=== PATIENT | male | born 1940 | race Caucasian/White ===

== ENCOUNTER 2018-05-02 13:00 | Observation (INO) ==
--- NOTE | 2018-05-02 14:05 | Emergency Department Note ---
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 Also return if he develop intractable nausea, vomiting, headache, blurred vision , numbness/weakness of any of your limbs, or any other signs that concern you. Make a follow-up appointment with neurology to be seen outpatient. Take the meclizine and Zofran as prescribed for dizziness and nausea. Prescriptions: Ondansetron HCl [Zofran] 4 mg PO Q8HR PRN #20 tab PRN Reason: Nausea And Vomiting Meclizine [Antivert] 12.5 mg PO TID 10 Days #30 tablet Referrals: Bentley Kumar DO [Primary Care Provider] - Meron Fishman MD [Partnered Physician] - Time of Disposition: 16:05 General Adult HPI - General Chief complaint: ED Dizziness Stated complaint: Dizzy Time Seen by Provider: 05/02/18 13:03 Source: patient Mode of arrival: ambulatory Limitations: no limitations Nursing Notes Reviewed: Yes Vital Signs Reviewed: Yes - History of Present Illness HPI Narrative: 78 yo male presents to the emergency department with the complaint of dizziness that started yesterday morning. He states that he rolled over in bed yesterday morning and immediately became so dizzy. He describes this dizziness as the room spinning and it is worse when he moves his head. It is especially bad when he has to lift his head up. He became extremely nauseous with this yesterday and felt weak and sweaty but got less dizzy as the day went on. This morning he woke up and rolled over in bed and again had the intense dizziness and states he was unable to get out of bed for several hours due to this dizziness. He has never had anything like this before and states she would only get momentary lightheadedness if he was bent over and stood up too suddenly in the past. He does not complain of any headache, chest pain, shortness of breath, abdominal pain at this time. He is not currently nauseous or sweaty but does feel generally weak at this time. Pain Scale: 0 - Related Data Previous Rx's Medication Instructions Recorded Meclizine [Antivert] 12.5 mg PO TID 10 Days #30 tablet 05/02/18 Ondansetron HCl [Zofran] 4 mg PO Q8HR PRN #20 tab 05/02/18 Allergies Allergy/AdvReac Type Severity Reaction Status Date / Time No Known Allergies Allergy Verified 05/02/18 13:39 All systems ED: reviewed and negative except as stated. Review of Systems: As Per HPI Constitutional: Reports: weakness. Denies: fever, chills, weight change Cardiovascular: Denies: chest pain, palpitations, dyspnea on exertion, edema, syncope Respiratory: Denies: cough, dyspnea, wheezes, hemoptysis, stridor Gastrointestinal: Reports: nausea. Denies: abdominal pain, vomiting Genitourinary: Denies: urgency, dysuria Musculoskeletal: Denies: back pain, neck pain Integumentary: Denies: rash, abrasion Neurological: Reports: weakness, paresthesias (Bilateral pedal neuropathy). Denies: headache, numbness Past Medical History - Past Medical History Attestation: Yes The following information was validated with the patient. Source: patient Medical history: Reports: diabetes Psychiatric history: Reports: no psych history - Social History Smoking Status: Never smoker Smokeless Tobacco Status: No Alcohol use: Reports: none Drug use: Reports: none Physical Exam Patient lying comfortably in bed. No ataxia on finger-nose or heel putnam testing. 5 out of 5 motor strength in extremities. No sensory changes per patient. Horizontal nystagmus was observed during eye movement testing. Bilateral ears normal to exam. - General Limitations: no limitations General appearance: alert, in no apparent distress - Head Head exam: atraumatic, normocephalic - Eye Eye exam: Present: normal appearance, PERRL, EOMI, nystagmus (Horizontal) - ENT ENT exam: TM's normal bilaterally, normal external ear exam - Neck Neck exam: Present: normal inspection, full ROM, trachea midline - Chest Chest inspection: Present: normal inspection, symmetric chest wall rise. Absent : tenderness - Respiratory Respiratory exam: Present: normal lung sounds bilaterally. Absent: respiratory distress - Cardiovascular Cardiovascular exam: Present: regular rate, normal rhythm, normal heart sounds - Abdominal Exam Abdominal exam: Present: soft, Non-Tender. Absent: distention, guarding, rebound, rigidity - Extremities Exam Extremities exam: Present: normal inspection, full ROM. Absent: tenderness, pedal edema, joint swelling - Neurological Exam Neurological exam: Present: alert, oriented X3. Absent: motor sensory deficit - Psychiatric Psychiatric exam: Present: normal affect, normal mood - Skin Skin exam: Present: warm, dry, intact Course Vital Signs Temperature 98 F 05/02/18 13:10 Pulse Rate 65 05/02/18 13:10 Respiratory Rate 20 05/02/18 13:10 Blood Pressure 150/92 05/02/18 13:10 O2 Sat by Pulse Oximetry 98 05/02/18 13:10 Temperature 98 F 05/02/18 13:10 Pulse Rate 63 05/02/18 16:05 Respiratory Rate 20 05/02/18 16:05 Blood Pressure 144/87 05/02/18 16:05 O2 Sat by Pulse Oximetry 94 05/02/18 16:05 Oxygen Delivery Oxygen Delivery Room Air Medical Decision Making - [facility] Narrative Medical decision making narrative: From patient history and physical, this dizziness likely is peripheral in origin. We will evaluate other causes of dizziness such as cardiac or central or metabolic. EKG, CT head noncontrast, CBC, BMP, urinalysis, troponin will be ordered to evaluate for other causes. We will give him meclizine for his dizziness to see if this helps. 1515 - patient's lab work has returned unremarkable. His EKG showed a new first -degree AV jaspreet block with some T-wave flattening, but no signs of any acute ischemic changes. Troponin was negative. 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 We have consulted neurology to ask if they have any further input on this patient. 1534 - spoke with Dr. Fishman from neurology. The patient very of vertigo developing yesterday was explained to him as well as the new lacunar infarct seen on CT scan. He states that the vertigo was sounds peripheral to him and that these lacunar infarcts would not cause his symptoms. He suggests giving the patient 60 mg Solu-Medrol in the emergency department as well as meclizine and if he is able to ambulate he can be seen outpatient. He also suggests the patient start taking a daily baby aspirin for prevention of further infarcts. 1546 - spoke with patient who states that he is feeling better. We will discharge him home after he receives his Solu-Medrol. He states that he used to take aspirin but he developed some GI bleeding from it and it really upset his stomach and he will not take it because of the side effects now. - Medical Records Medical records reviewed: Yes I reviewed the patient's medical records. - Lab Data Lab results reviewed: Yes I reviewed the patient's lab results. Result diagrams: 05/02/18 13:34 05/02/18 13:34 Lab Results 05/02/18 05/02/18 05/02/18 Range/Units 13:34 13:34 14:00 WBC 6.0 (4.3-11.1) K/mcL RBC 4.76 (4.19-5.50) M/mcL Hgb 14.6 (12.9-16.9) g/dL Hct 43.6 (37.5-50.1) % MCV 91.6 (83.0-100.0) fL MCH 30.7 (28.0-33.3) pg MCHC 33.5 (31.6-35.5) g/dL RDW 12.6 (11.5-14.5) % Plt Count 213 (140-400) K/mcL MPV 10.9 (9.4-12.4) fL Sodium 135 L (136-145) mEq/L Potassium 3.6 (3.5-5.1) mEq/L Chloride 109 H (98-107) mEq/L Carbon Dioxide 27 (23-29) mEq/L BUN 14 (8-23) mg/dL Creatinine 0.83 (0.70-1.30) mg/dL Est GFR ( Amer) > 60 (> 60) Est GFR (Non-Af Amer) > 60 (> 60) BUN/Creatinine Ratio 17 (6-26) Glucose 146 H (70-105) mg/dL Calculated Osmolality 283 (280-300) Calcium 9.7 (8.6-10.3) mg/dL Troponin I < 0.03 (< 0.04) ng/mL Urine Color Yellow (Yellow) Urine Clarity Clear (Clear) Urine pH 8.0 (5.0-8.0) pH Units Ur Specific [place] 1.018 (1.010-1.025) Urine Protein Trace (Neg-Trace) mg/dL Urine Glucose (UA) Normal (Normal) mg/dL Urine Ketones Trace H (Negative) mg/dL Urine Blood Negative (Negative) Urine Nitrite Negative (Negative) Urine Bilirubin Negative (Negative) Urine Urobilinogen Normal (Normal) mg/dL Ur Leukocyte Esterase Negative (Negative) Urine Microscopic RBC 0-3 (0-3) per hpf Urine Microscopic WBC 0-3 (0-3) per hpf Ur Squamous Epith Cells Few (None-Few) per lpf Urine Bacteria None Seen (None-Few) per hpf Hyaline Casts None Seen (None-Few) per lpf - Radiology Data Radiology results reviewed: Yes I reviewed the patient's radiology results. - EKG Data EKG #1 EKG attestation: Yes I reviewed and interpreted this EKG. EKG results narrative: 1338 - ventricular rate 65 bpm, GA interval 220 MS, QRS duration 97 MS, QT/QTC ratio 379/390 MS, normal axis. Sinus rhythm with first-degree AV block and nonspecific T-wave abnormalities that do not look to be ischemic in origin. His EKG has shown the development of first-degree block and some minor T wave flattening since his previous EKG dated 11/06/2012. Attestation Statement - Attestation Attestation: Patient was seen with resident physician. I reviewed the history, physical, assessment and plan, and agree with the findings. I also personally evaluated this patient and had [id number] time with this patient. 78-year-old male presents emergency department dizziness since yesterday. Patient states that has gotten progressively worse over the knee past 48 hours. Movement of the head and sitting up abruptly causes symptoms to be worse. The spinning sensation is difficult time catching his balance. He is diabetic and has had a history of pulmonary nodules. He has had brain workup to look for masses which involve been negative. Says the dizziness is new. No shortness of breath no chest pain no abdominal pain. There is some nausea when the room is spinning has not thrown up. Review of systems as above remainder negative. Physical exam vital signs are stable. ENT TMs are normal with no redness no bulging no erythema no foreign body. He does wear hearing aids and these were removed prior to examination. Neck is supple nontender no nuchal rigidity no meningeal signs. Heart regular rhythm and rate. Lungs clear. Abdomen soft nontender. Extremities unremarkable. Neurologically symptoms are caused by the patient either sitting up or turning his head to the side has some nystagmus but otherwise is focally intact with no deficits. Skin no rashes. Psych normal. ED course we will do workup for dizziness including urinalysis and laboratory testing and CT scan of the head. EKG shows first-degree AV block but no acute ischemic changes. Chuck comes back okay anticipate treating for vertigo. Patient was feeling better throughout his stay and was able to ambulate. CT scan had revealed lacunar infarcts of indeterminate age. We discussed this finding with neurology in relationship to his symptoms. It was felt that it was unlikely to be new however he recommended the addition of steroids at and the meclizine and to ensure the patient can ambulate prior to disposition. He also want to see the patient as an outpatient. We did recommend that to the patient and ensure that he was hemodynamically stable for discharge prior to him leaving.. Agree with resident physician assessment and plan.
[2018-05-02 14:20] LABS: Hematocrit 43.6 % (37.5-50.1); Hemoglobin 14.6 g/dL (12.9-16.9); Mean Corpuscular HGB Conc 33.5 g/dL (31.6-35.5); Mean Corpuscular Hemoglobin 30.7 pg (28.0-33.3); Mean Corpuscular Volume 91.6 fL (83.0-100.0); Mean Platelet Volume 10.9 fL (9.4-12.4); Platelet Count 213 K/mcL (140-400); Red Blood Count 4.76 M/mcL (4.19-5.50); Red Cell Distribution Width 12.6 % (11.5-14.5)
[2018-05-02 14:25] LABS: Bilirubin,Urine Negative (Negative); Blood,Urine Negative (Negative); Clarity,Urine Clear (Clear); Color,Urine Yellow (Yellow); Glucose,Urine (UA) Normal (Normal); Ketones,Urine Trace mg/dL (Negative); Leukocyte Esterase,Urine Negative (Negative); Nitrite,Urine Negative (Negative); Protein,Urine Trace mg/dL (Neg-Trace); Specific Gravity,Urine 1.018 (1.010-1.025); Urobilinogen,Urine Normal (Normal)
[2018-05-02 14:29] LABS: Bacteria,Urine None Seen per hpf (None-Few); Hyaline Casts,Urine None Seen per lpf (None-Few); RBC,Urine 0-3 per hpf (0-3); Squamous Epithelial Cell,Urine Few per lpf (None-Few); WBC,Urine 0-3 per hpf (0-3)
[2018-05-02 14:33] LABS: BUN/Creatinine Ratio 17 (6-26); Blood Urea Nitrogen 14 mg/dL (8-23); Calcium 9.7 mg/dL (8.6-10.3); Carbon Dioxide 27 mEq/L (23-29); Chloride 109 mEq/L (98-107); Glucose 146 mg/dL (70-105); Osmolality,Calculated 283 (280-300); Potassium 3.6 mEq/L (3.5-5.1); Sodium 135 mEq/L (136-145); eGFR For Non-African Americans > 60 (> 60)
[2018-05-02 15:02] LABS: Troponin I < 0.03 ng/mL (< 0.04)
[2018-05-02] MEDS ORDERED: MethylPREDNISolone 40 MG/ML VIAL IVP ONE (15:33)
[2018-05-02] MEDS ORDERED: Naloxone 0.4 MG/ML INJ IVP PRN (17:37)
--- NOTE | 2018-05-02 17:38 | Internal Med History&Physical ---
<LyndonvilleYumiko Neha - Last Filed: 05/02/18 22:06> Date of Encounter: 05/02/18 Time of Encounter: 17:37 Internal Medicine - H&P: HPI Chief complaint: Vertigo Admitted From: Home Plans for Post Hospital Care: Home History of present illness: Mr. Pastor is a 78 year old male with history of DM, polymyalgia rhematica. Patient indicated that he woke up yesterday morning and when he rolled over he was very dizzy. He indicated the vertigo comes with any movement, especially his head.The patient was not able to be discharged home from the ED due to the dizziness, and his inability to ambulate. CT of head showed no acute changes, mild atrophy and mild old microvasular ischemic change in both cerebral hemispheres. 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 Patient with no focal deficits. The patient will need MRI per the CT suggestion. Will get orthostatics, as the patient indicated he was + for orthostatic hypotension in the squad. Neurology was consulted in the ED. The patient was given solumedrol in the ED. The patient is a non-insulin dependent diabetic. Blood sugar is 146 at this time. Will hold all oral anti- hypoglycemic meds for now and start the patient on low dose insulin. EKG showed sinus rhythm first degree AVB, rate 65. Past Med Surg Social Fam HX - Past Medical History Medical history: diabetes Additional medical history: benign lung nodules Psychiatric history: no psych history - Past Surgical History Additional surgical history: eyelid surgery. back - Social History Smoking Status: Never smoker Smokeless Tobacco Status: No Alcohol use: none Drug use: none - Family History Mother Living Status: Age at : 62 Cause of : Colon Cancer Hx Family Cardiac Disorders: No Hx Family Respiratory Disorders: Yes Hx Family Cancer: Yes (Lung Cancer, Colon Cancer,) Hx Family Genitourinary Disorders: No Hx Family Endocrine Disorder: Yes (Diabetes) Hx Family Musculoskeletal Disorders: No Hx Family Neuromuscular Disorders: No Hx Family Neurologic Disorders: No Hx Family HEENT Disorders: No Hx Family Autoimmune Disorders: No Hx Family Reproductive Disorders: No Hx Family Psychosocial Disorders: No Hx Family Medical Disorders: No Internal Medicine - H&P: Meds Alendronate Sodium [Fosamax] 70 mg PO QWEEK 05/02/18 [History] B12/Levomefolate Calcium/B-6 05/02/18 [History] Cholecalciferol (D-3) [Vitamin D] 2,000 unit PO DAILY 05/02/18 [History] Fish Oil 1,000 BID 05/02/18 [History] Fluticasone Propionate Nasal [Flonase] 2 spr NS DAILY 05/02/18 [History] Gabapentin [Neurontin] 600 mg PO TID 05/02/18 [History] Meclizine [Antivert] 12.5 mg PO TID 10 Days #30 tablet 05/02/18 [Rx] Metformin HCl [Glucophage] 1,000 mg PO BID 05/02/18 [History] Ondansetron HCl [Zofran] 4 mg PO Q8HR PRN #20 tab 05/02/18 [Rx] Pioglitazone HCl [Actos] 30 mg PO DAILY 05/02/18 [History] Ranitidine HCl [Acid Ship Captain] 150 mg PO BID 05/02/18 [History] diazePAM [Valium] 5 mg PO DAILY 05/02/18 [History] 3 Allergy/AdvReac Type Severity Reaction Status Date / Time No Known Allergies Allergy Verified 05/02/18 13:39 All Systems PM: A 10-system review of systems was performed and is negative for pertinent findings except as documented above in the HPI. - Constitutional Constitutional: no chills, no fever(s), no night sweats - EENT Eyes: no change in vision, no discharge, no pain, no photophobia Ears: no ear discharge, no ear pain, no tinnitus Nose, mouth and throat: no dysphagia, no nasal discharge, no neck pain, no sore throat - Cardiovascular Cardiovascular ROS IM: no chest pain, no diaphoresis, no dyspnea, no lightheadedness, no palpitations, no syncope - Respiratory Respiratory: no cough, no dyspnea, no wheezing, no excessive phlegm production - Gastrointestinal Gastrointestinal: no abdominal pain, no diarrhea, no hematemesis, no hematochezia, no melena, no nausea, no vomiting - Musculoskeletal Musculoskeletal ROS IM: neck pain (Back of neck and head pain), no numbness, no tingling - Integumentary Integumentary IM: no rash, no unusual bruising - Neurological Neurological ROS: abnormal gait, dizziness, other (Inability to stand and ambulate ), no confusion, no convulsions, no focal weakness, no numbness, no tingling, no tremor(s) - Hematologic/Lymphatic Hematologic/Lymphatic: no easy bruising - Constitutional Vitals: Temp Pulse Resp BP Pulse Ox 98 F 62 20 141/90 94 05/02/18 13:10 05/02/18 17:00 05/02/18 17:00 05/02/18 17:00 05/02/18 17:00 General appearance: Present: A&O X 3, answers questions appropriately - Head Head exam: Present: atraumatic, normocephalic - Eye Eye exam: Present: PERRL, conjuntiva pink, sclera anicteric Pupils: Present: PERRL - Neck Neck exam general surgery: Present: supple, trachea midline. Absent: lymphadenopathy - Respiratory Respiratory exam: Present: CTAB. Absent: accessory muscle use, rales, rhonchi, wheezes - Cardiovascular Cardiovascular exam: Present: RRR, +S1, +S2. Absent: diastolic murmur, gallop, rubs, systolic murmur - GI/Abdominal GI/Abdominal exam: Present: normal bowel sounds, soft, no peritoneal signs. Absent: distended, tenderness - Extremities Exam Extremities exam: Present: warm, radial pulses palpable and symmetrical. Absent : calf tenderness, cyanotic, pedal edema - Neurological Exam Neurological exam: Present: CN II-XII intact, oriented X3, no focal deficits. Absent: pronater drift, facial droop, speech deficit - Skin Skin exam: Present: dry, intact Internal Med - H&P Results - Labs CBC & Chem 7: 05/02/18 13:34 05/02/18 13:34 - Assessment and plan (1) Vertigo Current Visit: Yes Status: Acute Assessment and plan: Patient reports periods of dizziness that only lasted seconds, in the past. Neurology was consulted in the ED. Vertigo started yesterday and has not subsided. The patient notices it with movement only, or turning his head side to side. Likely related to BPPV Patient reported no new medications Ortho-statics Echo Carotid duplex PT/OT consulted Cardiac monitoring MRI in am (2) BPPV (benign paroxysmal positional vertigo) Current Visit: Yes Status: Suspected Assessment and plan: Ortho-statics daily PT/OT consulted Cardiac monitoring MRI in am Qualifiers: Laterality: unspecified laterality Qualified Code(s): H81.10 - Benign paroxysmal vertigo, unspecified ear (3) PMR (polymyalgia rheumatica) Current Visit: Yes Status: Chronic Assessment and plan: Managed outpatient (4) Lacunar infarction Current Visit: Yes Status: Chronic Assessment and plan: Patient with 2 (?old) lacunar infarcts. CT suggested a MRI of the brain. Carotid dupex MRI scheduled echo Neurology on case - Time Spent With Patient Total time spent is greater than 50% in coordination of care (as documented) at patient's floor/unit and/or counseling patient: 25 - 35 minutes <Dixie Murrieta - Last Filed: 05/02/18 23:14> Date of Encounter: 05/02/18 Internal Medicine - H&P: HPI History of present illness: Mr. Pastor is a 78 year old male All Systems PM: A 10-system review of systems was performed and is negative for pertinent findings except as documented above in the HPI. - Constitutional Vitals: Temp Pulse Resp BP Pulse Ox 97.9 F 72 18 155/84 93 05/02/18 18:12 05/02/18 18:12 05/02/18 18:12 05/02/18 18:12 05/02/18 20:54 Internal Med - H&P Results - Labs CBC & Chem 7: 05/02/18 22:04 05/02/18 13:34 Labs: Short CBC 05/02/18 Range/Units 22:04 WBC 9.1 D (4.3-11.1) K/mcL Hgb 14.4 (12.9-16.9) g/dL Hct 43.2 (37.5-50.1) % Plt Count 213 (140-400) K/mcL Neutrophils # 8.4 (1.6-8.9) K/mcL - Impressions ITS Impressions Brain MRI 05/02/18 18:06 IMPRESSION: 1. No acute intracranial abnormality. 2. Senescent parenchymal volume loss with mild chronic white matter microvascular ischemic changes. D/ / Yuriy Awad / Yuriy Awad Interpreting Provider: Yuriy Awad - Time Spent With Patient Total time spent is greater than 50% in coordination of care (as documented) at patient's floor/unit and/or counseling patient: Patient was seen and examined at bedside. He reports that he developed sudden onset of dizziness and sensation of room spinning around him when he woke up this morning. The sensation was associated with nausea but denies vomiting. Denies recent head trauma, has never felt like this before, denies loss of function of his extremities. He tried to eat to alleviate his symptoms but his symptoms remain unresolved so he decided to come to the ED. getting up too quickly and sitting up from a lying position exacerbates his symptoms. He denies tinnitus or recent upper respiratory tract infection. Vital signs reviewed. Physical exam was normal myself on neurological exam cranial nerves II-12 is intact, no nystagmus, rapid hand movements intact strength is 5 out of 5 in all extremities. [id number] intact. I agree with the plan formulated by the PA above except as below May start meclizine when necessary for dizziness Was started on aspirin Was counseled on importance of statins. Although he refused to take statins since he feels as though it is going to worsen his polymyalgia rheumatica.
[2018-05-02] MEDS ORDERED: diazePAM 5 MG TABLET PO PRN (17:43)
[2018-05-02] MEDS ORDERED: Dextrose Gel 15 GM/37.5 ML TUBE PO PRN ×2 (17:47)
[2018-05-02] MEDS ORDERED: *HR* Dextrose 50 % in Water (Syg) 50 ML SYRINGE IVP PRN (17:47)
[2018-05-02] MEDS ORDERED: D5% in Water 1,000 ML IVC PRN (17:47)
[2018-05-02] MEDS ORDERED: Acetaminophen 325 MG TABLET PO PRN (17:56)
[2018-05-02] MEDS ORDERED: Aspirin 325 MG TABLET PO ONE (21:00)
[2018-05-02] MEDS ORDERED: Famotidine 20 MG TABLET PO SCH (21:00)
[2018-05-02] MEDS: Gabapentin 300 MG CAPSULE PO SCH (21:02)
[2018-05-02 22:38] LABS: Basophils % 0.2 %; Hematocrit 43.2 % (37.5-50.1); Hemoglobin 14.4 g/dL (12.9-16.9); Immature Granulocytes % 0.7 % (0-4); Immature Platelets 6.6 % (1.1-6.1); Lymphocytes # 0.6 K/mcL (0.6-4.6); Lymphocytes % 6.5 %; Mean Corpuscular HGB Conc 33.3 g/dL (31.6-35.5); Mean Corpuscular Hemoglobin 31.1 pg (28.0-33.3); Mean Corpuscular Volume 93.3 fL (83.0-100.0); Mean Platelet Volume 11.1 fL (9.4-12.4); Monocytes # 0.1 K/mcL (0.0-1.3); Monocytes % 0.7 %; Neutrophils # 8.4 K/mcL (1.6-8.9); Platelet Count 213 K/mcL (140-400); Red Blood Count 4.63 M/mcL (4.19-5.50); Red Cell Distribution Width 12.6 % (11.5-14.5); Segmented Neutrophils % 91.9 %
[2018-05-03] MEDS ORDERED: Pantoprazole 40 MG VIAL IVP SCH (06:30)
[2018-05-03 06:52] LABS: BUN/Creatinine Ratio 24 (6-26); Blood Urea Nitrogen 21 mg/dL (8-23); Carbon Dioxide 24 mEq/L (23-29); Chloride 106 mEq/L (98-107); Chol/HDL Ratio 5.7 (0-4.9); Cholesterol 205 mg/dL (< 200); Glucose 221 mg/dL (70-105); HDL Cholesterol 36 mg/dL (40-59); LDL Cholesterol,Calculated 141 mg/dL (0-99); Osmolality,Calculated 292 (280-300); Potassium 4.3 mEq/L (3.5-5.1); Sodium 136 mEq/L (136-145); Triglycerides 141 mg/dL (< 150); eGFR For Non-African Americans > 60 (> 60)
[2018-05-03 06:55] LABS: Troponin I < 0.03 ng/mL (< 0.04)
[2018-05-03] MEDS: Gabapentin 300 MG CAPSULE PO SCH ×3 (07:54→20:52)
[2018-05-03] MEDS: Aspirin 81 MG TAB.CHEW PO SCH (07:54)
[2018-05-03] MEDS: Insulin LISPRO 300 UNITS/3 ML VIAL SQ SCH ×3 (07:55→16:31)
[2018-05-03] MEDS: Fluticasone Propionate Nasal 50 MCG/SPRAY BOTTLE NS SCH (09:29)
--- NOTE | 2018-05-03 13:39 | Internal Med Progress Note ---
Date of Encounter: 05/03/18 Time of Encounter: 10:45 - Assessment and plan (1) Vertigo Current Visit: Yes Status: Acute Assessment and plan: possibly BPPV vs vestibular labyrinthitis; CT head and MRI brain showed no acute bleed/infarct, showed chronic microvascular ischemic changes; continue Telemetry, PRN Meclizine, fall precautions; Carotid Doppler shows nonstenotic plaque on the right and 40-59% stenosis in left distal ICA; Echo shows preserved EF, mild LV diastolic dysfunction, ascending thoracic aortic root dilation at 4cm; may need outpatient CTA chest; F/up Neurology recommendations; PT/OT evaluation pending; (2) Diabetes mellitus Current Visit: Yes Status: Chronic Assessment and plan: blood sugars acceptable; continue Accucheck blood glucose monitoring with sliding scale insulin as needed; diabetic diet; Qualifiers: Diabetes mellitus type: type 2 Diabetes mellitus shorthand reporter insulin use: without shorthand reporter use Diabetes mellitus complication status: with unspecified complications Qualified Code(s): E11.8 - Type 2 diabetes mellitus with unspecified complications (3) PMR (polymyalgia rheumatica) Current Visit: Yes Status: Chronic Assessment and plan: patient states it is secondary to statin use; completing prolonged steroid taper ; - Time Spent With Patient Total time spent is greater than 50% in coordination of care (as documented) at patient's floor/unit and/or counseling patient: - Subjective Interval history: Continues to have vertigo and dizziness, exacerbated by sitting up in bed and ambulation; no nausea, vomiting, syncope, chest pain, shortness of breath; - Constitutional Vitals: Temp Pulse Resp BP Pulse Ox 98.2 F 62 16 127/70 93 05/03/18 11:11 05/03/18 11:11 05/03/18 11:11 05/03/18 11:11 05/03/18 11:11 General appearance: Present: A&O X 3, answers questions appropriately - Respiratory Respiratory exam: Present: CTAB. Absent: accessory muscle use, rales, rhonchi, wheezes - Cardiovascular Cardiovascular exam: Present: RRR, +S1, +S2. Absent: diastolic murmur, gallop, rubs, systolic murmur - GI/Abdominal GI/Abdominal exam: Present: normal bowel sounds, soft, no peritoneal signs. Absent: distended, tenderness Internal Medicine: Result - Labs CBC & Chem 7: 05/02/18 22:04 05/03/18 05:59 Labs: Short CBC 05/02/18 Range/Units 22:04 WBC 9.1 D (4.3-11.1) K/mcL Hgb 14.4 (12.9-16.9) g/dL Hct 43.2 (37.5-50.1) % Plt Count 213 (140-400) K/mcL Neutrophils # 8.4 (1.6-8.9) K/mcL BMP 05/03/18 05:59 Sodium 136 Potassium 4.3 Chloride 106 Carbon Dioxide 24 BUN 21 Creatinine 0.89 Glucose 221 H Calcium 9.0 Cardiac Enzymes 05/03/18 Range/Units 05:59 Troponin I < 0.03 (< 0.04) ng/mL - Impressions Impressions Brain MRI 05/02/18 18:06 IMPRESSION: 1. No acute intracranial abnormality. 2. Senescent parenchymal volume loss with mild chronic white matter microvascular ischemic changes. D/ / Yuriy Awad / Yuriy Awad Interpreting Provider: Yuriy Awad Echocardiogram 05/03/18 10:00 Impressions: Not all Echo windows are well visualized. LVEF appears normal, 60-65%. Mild left ventricular diastolic dysfunction. RV is dilated with normal function. No significant valvular dysfunction. Lack of significant TR gradient to estimate RVSP. Mild elevation of RA pressures. The aortic root and ascending proximal thoracic aorta may be dilated, measured at 4.0cm. Consider dedicated CT imaging. Left Ventricular Wall Motion: Rest Echo Findings The basal inferior lateral wall was not visualized. All other wall segments showed normal motion. Findings: Study Quality * Technically challenging due to body habitus. ECG Findings * Normal sinus rhythm. Left Ventricle * LVEF 60-65%. * Normal LV chamber size and wall thickness. * Mild left ventricular diastolic dysfunction. Right Ventricle * RV is dilated with normal function. Left Atrium * Left atrium is not well visualized. Right Atrium * Mildly dilated right atrium. Aortic Valve * No aortic regurgitation. * Aortic valve not well visualized. * No aortic stenosis. Mitral Valve * No mitral regurgitation. * Normal mitral valve structure. * No mitral stenosis. Tricuspid Valve * Tricuspid valve not well visualized. * No tricuspid regurgitation. * Estimated RA pressure is 8 mmHg. Pulmonic Valve * Pulmonic valve is not well visualized. * No pulmonic stenosis. * No pulmonic regurgitation. Pulmonary Artery * Pulmonary artery not well visualized. Pericardium * There is no pericardial effusion present. Aorta * Dilated aortic root measuring 4.0cm. Interatrial Septum * No evidence of PFO by color Doppler. IVC * The IVC is not dilated. * < 50% respiratory change. Consult Discharge Plan - Plan
[2018-05-04] MEDS: Insulin LISPRO 300 UNITS/3 ML VIAL SQ SCH ×3 (08:37→17:00)
[2018-05-04] MEDS: Aspirin 81 MG TAB.CHEW PO SCH (09:08)
[2018-05-04] MEDS: Gabapentin 300 MG CAPSULE PO SCH ×2 (09:09→14:09)
[2018-05-04] MEDS: Fluticasone Propionate Nasal 50 MCG/SPRAY BOTTLE NS SCH (09:15)
--- NOTE | 2018-05-04 10:02 | Neurology - Consult Note ---
<Mauricio Mike Chapo - Last Filed: 05/04/18 09:47> Date of Encounter: 05/04/18 Time of Encounter: 09:30 History of Present Illness Chief complaint: Dizziness HPI: Mr. Pastor is a 78 year old male with PMH significant for DM and PMR who neurology is consulting for dizziness. When he awoke 3 days ago he says the room was spinning and and he laid in bed for about an hour and when he tried to get up he was diaphoretic and nauseous. He had his check both his BP and glucose and he says they were both normal for him. The room spinning sensation would last for a few seconds to about 1 min whenever he went from laying to sitting or sitting to standing and sometimes when turning his head to the sides. The next morning he says his symptoms were more intense and felt more off balance when ambulating with additional feelings of getting close to passing out. He then called EMS and was told he had orthostatic hypotension and transported to [place] ED. Yesterday, he says his symptoms improved some and was able to walk to the bathroom alone and his symptoms improved even more today. He says he ambulated with PT in the halls and did not feel dizzy but did sometimes feel off balance when turning. He denies ever having these symptoms before and denies any change in hearing, tinnitus, feelings of ear fullness, neck pain, chest pain, SOB, palpitations, presyncope/syncope, falls, or recent infections. Head CT, brain MRI, and carotid doppler's have not shown any acute findings. Past Med Surg Social Fam HX - Past Medical History Medical history: diabetes Additional medical history: benign lung nodules Psychiatric history: no psych history - Past Surgical History Additional surgical history: eyelid surgery. back - Social History Smoking Status: Never smoker Smokeless Tobacco Status: No Alcohol use: none Drug use: none - Family History Mother Living Status: Age at : 62 Cause of : Colon Cancer Hx Family Cardiac Disorders: No Hx Family Respiratory Disorders: Yes Hx Family Cancer: Yes (Lung Cancer, Colon Cancer,) Hx Family Genitourinary Disorders: No Hx Family Endocrine Disorder: Yes (Diabetes) Hx Family Musculoskeletal Disorders: No Hx Family Neuromuscular Disorders: No Hx Family Neurologic Disorders: No Hx Family HEENT Disorders: No Hx Family Autoimmune Disorders: No Hx Family Reproductive Disorders: No Hx Family Psychosocial Disorders: No Hx Family Medical Disorders: No Medications and Allergies Alendronate Sodium [Fosamax] 70 mg PO QWEEK 05/02/18 [History] B12/Levomefolate Calcium/B-6 05/02/18 [History] Cholecalciferol (D-3) [Vitamin D] 2,000 unit PO DAILY 05/02/18 [History] Fish Oil 1,000 BID 05/02/18 [History] Fluticasone Propionate Nasal [Flonase] 2 spr NS DAILY 05/02/18 [History] Gabapentin [Neurontin] 600 mg PO TID 05/02/18 [History] Meclizine [Antivert] 12.5 mg PO TID 10 Days #30 tablet 05/02/18 [Rx] Metformin HCl [Glucophage] 1,000 mg PO BID 05/02/18 [History] Ondansetron HCl [Zofran] 4 mg PO Q8HR PRN #20 tab 05/02/18 [Rx] Pioglitazone HCl [Actos] 30 mg PO DAILY 05/02/18 [History] Ranitidine HCl [Acid Reprint Sorter] 150 mg PO BID 05/02/18 [History] diazePAM [Valium] 5 mg PO DAILY 05/02/18 [History] 3 Allergy/AdvReac Type Severity Reaction Status Date / Time No Known Allergies Allergy Verified 05/02/18 13:39 All Systems: The remainder of the systems were reviewed and are negative - Nose, Mouth, Throat Nose, mouth and throat: as per HPI - Cardiovascular Cardiovascular ROS IM: as per HPI - Neurological Neurological ROS: as per HPI Physical Examination - Vital Signs Vital Signs: Initial Vital Signs Temp Pulse Resp BP Pulse Ox 98 F 65 20 150/92 98 05/02/18 13:10 05/02/18 13:10 05/02/18 13:10 05/02/18 13:10 05/02/18 13:10 - Constitutional General appearance: comfortable - Neurologic Motor examination - right side: 5/5: deltoids, biceps, triceps, wrist flexion, wrist extension, cement m[address], hip flexors, tibialis Anterior, quadriceps, toe extension (EHL), plantarflexion Motor examination - left side: 5/5: deltoids, biceps, triceps, wrist flexion, wrist extension, hip flexors, cement m[address], quadriceps, tibialis Anterior, toe extension (EHL), plantarflexion Detailed sensory examination: intact Mental Status Examination: awake, alert, oriented to person, oriented to place, oriented to time, follows commands appropriately, answers questions appropriately, no aphasia Cranial nerve examination: PERRL, EOMI, visual quick intact, sensory to face intact, no facial asymmetry is present, no dysarthria, flexes SCM and trapezius muscles symmetrically with full power, tongue protrudes midline, no atrophy or facial fasiculations present, veritgo (Ellicted with Crosby-Hallpike to the L side and nystagmus, opposite side normal ) Cerebellar examination: performs finger to nose and heel to [place]nam symmetrically without ataxia, no difficulty with rapid alternating movements Results - Laboratory Findings CBC and BMP: 05/02/18 22:04 05/03/18 05:59 Abnormal lab findings: Abnormal lab results Immature Plt Fraction 6.6 % (1.1-6.1) H 05/02/18 22:04 Glucose 221 mg/dL (70-105) H 05/03/18 05:59 POC Glucose 179 mg/dL (70-99) H 05/03/18 11:14 Cholesterol 205 mg/dL (< 200) H 05/03/18 05:59 LDL Cholesterol, Calc 141 mg/dL (0-99) H 05/03/18 05:59 HDL Cholesterol 36 mg/dL (40-59) L 05/03/18 05:59 Cholesterol/HDL Ratio 5.7 (0-4.9) H 05/03/18 05:59 Urine Ketones Trace mg/dL (Negative) H 05/02/18 14:00 Consult Discharge Plan - Plan Referrals: Bentley Kumar DO [Primary Care Provider] - <Meron Fishman I - Last Filed: 05/04/18 11:37> Date of Encounter: 05/04/18 Assessment and Plan (1) Vertigo Current Visit: Yes Status: Acute (2) Dizziness and giddiness Current Visit: Yes Status: Acute Pt was seen and examined, my medical decision was reviewed with the Resident Physician, I agree with the documented findings, disposition and treatment plas as described except to the extent set forth below This is a 78 years old male who was was admitted with this dizziness lightheadedness and vertiginous feeling without any focal findings on his current neurological examination. Patient did not have any focal motor weakness and his cranial nerve examination all within normal limits. Reviewed his MRI of the brain that is also negative for any acute infarct. He did have a mild the asymptomatic left carotid stenosis with 59% range suggest medical treatment with antiplatelet therapy along with the statin. Suspect patient dizziness is likely peripheral in nature no evidence of acute stroke on MRI of the brain and on clinical examination. Suggested to increase fluid may use meclizine on as-needed basis if he remains symptomatic perhaps he may benefit from vestibular rehabilitation. This patient is a stable okay to discharge from neurology standpoint. Meron Fishman MD History of Present Illness HPI: Mr. Pastor is a 78 year old male All Systems: The remainder of the systems were reviewed and are negative Physical Examination - Vital Signs Vital Signs: Initial Vital Signs Temp Pulse Resp BP Pulse Ox 98 F 65 20 150/92 98 05/02/18 13:10 05/02/18 13:10 05/02/18 13:10 05/02/18 13:10 05/02/18 13:10 Results - Laboratory Findings CBC and BMP: 05/02/18 22:04 05/03/18 05:59 Abnormal lab findings: Abnormal lab results Immature Plt Fraction 6.6 % (1.1-6.1) H 05/02/18 22:04 Glucose 221 mg/dL (70-105) H 05/03/18 05:59 POC Glucose 179 mg/dL (70-99) H 05/03/18 11:14 Cholesterol 205 mg/dL (< 200) H 05/03/18 05:59 LDL Cholesterol, Calc 141 mg/dL (0-99) H 05/03/18 05:59 HDL Cholesterol 36 mg/dL (40-59) L 05/03/18 05:59 Cholesterol/HDL Ratio 5.7 (0-4.9) H 05/03/18 05:59 Urine Ketones Trace mg/dL (Negative) H 05/02/18 14:00
--- NOTE | 2018-05-04 10:18 | Internal Med Progress Note ---
Date of Encounter: 05/04/18 Time of Encounter: 10:15 - Assessment and plan (1) Vertigo Current Visit: Yes Status: Acute Assessment and plan: Has improved since yesterday. increased ability to walk with aid Neuro consulted appreciate recs continue meclizine (2) PMR (polymyalgia rheumatica) Current Visit: Yes Status: Chronic Assessment and plan: improved finished steriod taper on 04/22/18 states it was from a statin medication. (3) Diabetes mellitus Current Visit: Yes Status: Chronic Assessment and plan: BG acceptable continue accuchecks and sliding scale insulin Qualifiers: Diabetes mellitus type: type 2 Diabetes mellitus assisted insulin use: without assisted use Diabetes mellitus complication status: with unspecified complications Qualified Code(s): E11.8 - Type 2 diabetes mellitus with unspecified complications - Subjective Interval history: Patient states he is doing better today. He does not feel as dizzy and is able to walk with aid. He is improving but not at baseline. No vision changes. denies CRUMP, States he slept ok but did wake up with night sweats. He denies any confusion over his hospital course. Finished steriod taper on 04/22 for PMR - Constitutional Vitals: Temp Pulse Resp BP Pulse Ox 97.5 F L 49 15 138/72 91 05/04/18 06:43 05/04/18 06:43 05/04/18 06:43 05/04/18 06:43 05/04/18 06:43 General appearance: Present: A&O X 3, answers questions appropriately - Head Head exam: Present: atraumatic, normocephalic - Eye Eye exam: Present: EOMI, normal appearance - Respiratory Respiratory exam: Absent: accessory muscle use, respiratory distress - Cardiovascular Cardiovascular exam: Present: RRR - Neurological Exam Neurological exam: Present: alert - Psychiatric Psychiatric exam: Present: normal affect, normal mood Internal Medicine: Result - Labs CBC & Chem 7: 05/02/18 22:04 05/03/18 05:59 - Impressions Impressions Echocardiogram 05/03/18 10:00 Impressions: Not all Echo windows are well visualized. LVEF appears normal, 60-65%. Mild left ventricular diastolic dysfunction. RV is dilated with normal function. No significant valvular dysfunction. Lack of significant TR gradient to estimate RVSP. Mild elevation of RA pressures. The aortic root and ascending proximal thoracic aorta may be dilated, measured at 4.0cm. Consider dedicated CT imaging. Left Ventricular Wall Motion: Rest Echo Findings The basal inferior lateral wall was not visualized. All other wall segments showed normal motion. Findings: Study Quality * Technically challenging due to body habitus. ECG Findings * Normal sinus rhythm. Left Ventricle * LVEF 60-65%. * Normal LV chamber size and wall thickness. * Mild left ventricular diastolic dysfunction. Right Ventricle * RV is dilated with normal function. Left Atrium * Left atrium is not well visualized. Right Atrium * Mildly dilated right atrium. Aortic Valve * No aortic regurgitation. * Aortic valve not well visualized. * No aortic stenosis. Mitral Valve * No mitral regurgitation. * Normal mitral valve structure. * No mitral stenosis. Tricuspid Valve * Tricuspid valve not well visualized. * No tricuspid regurgitation. * Estimated RA pressure is 8 mmHg. Pulmonic Valve * Pulmonic valve is not well visualized. * No pulmonic stenosis. * No pulmonic regurgitation. Pulmonary Artery * Pulmonary artery not well visualized. Pericardium * There is no pericardial effusion present. Aorta * Dilated aortic root measuring 4.0cm. Interatrial Septum * No evidence of PFO by color Doppler. IVC * The IVC is not dilated. * < 50% respiratory change. - VTE Documentation of Mechanical Device: Venous foot pump, device Consult Discharge Plan - Plan Referrals: Bentley Kumar DO [Primary Care Provider] -
[2018-05-04 15:22] VITALS: BP 137/81
--- NOTE | 2018-05-04 15:27 | Discharge Summary ---
<Aidan Luke W - Last Filed: 05/04/18 16:29> - NOTES TO OUTPATIENT PROVIDER Notes to Outpatient Provider: Echo showed The aortic root and ascending proximal thoracic aorta may be dilated, measured at 4.0cm. Suspect patient dizziness is likely peripheral in nature no evidence of acute stroke on MRI of the brain and on clinical examination. Suggested to increase fluid may use meclizine on as-needed basis if he remains symptomatic perhaps he may benefit from vestibular rehabilitation. Date of Encounter: 05/04/18 Time of Encounter: 08:30 - Discharge Diagnosis (1) Vertigo Priority: Primary Status: Acute Comments: Symptoms have improved throughout hospitalization Currently able to ambulate with assistance Neurology follow up outpatient may benefit from vestibular therapy if he remains symptomatic No focal neurologic deficits currently MRI negative for any acute infarct PRN meclizine for dizziness (2) PMR (polymyalgia rheumatica) Priority: Secondary Status: Chronic Comments: Resolving, only mild tenderness in shoulders Patient states it was from simvastatin and he improved when he discontinued it. Just finished his steroid taper on 04/22/18 (3) Diabetes mellitus Priority: Secondary Status: Chronic Comments: Continue home course Qualifiers: Diabetes mellitus type: type 2 Diabetes mellitus buttermaker helper insulin use: without chcf use Diabetes mellitus complication status: with unspecified complications Qualified Code(s): E11.8 - Type 2 diabetes mellitus with unspecified complications Hospital course: Mr. Pastor is a 78 year old male with history of DM, polymyalgia rhematica. Patient indicated that he woke up yesterday morning and when he rolled over he was very dizzy. He indicated the vertigo comes with any movement, especially his head.The patient was not able to be discharged home from the ED due to the dizziness, and his inability to ambulate. CT of head showed no acute changes, mild atrophy and mild old microvasular ischemic change in both cerebral hemispheres. 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 Patient with no focal deficits. MRI on 05/02/18 IMPRESSION: 1. No acute intracranial abnormality. 2. Senescent parenchymal volume loss with mild chronic white matter microvascular ischemic changes. On 05/03/18 patient received Carotid duplex and ECHO Carotid duplex showed Findings: Right carotid system has nonstenotic plaque. Findings: Left distal ICA has a moderate, 40-59% stenosis. ECHO:The aortic root and ascending proximal thoracic aorta may be dilated, measured at 4.0cm. The patient has shown gradual improvement throughout the course of his hospitalization. He is now able to ambulate with assistance and sit up without feeling excessively dizzy. He was evaluated by neurology 05/04/18 who stated he is stable and safe to discharge home from there standpoint. Working with social work to set up PT/OT through the [facility]. - Time Spent with Patient Total time spent providing and/or coordinating discharge services: Greater than 30 minutes - Discharge Medications Home Medications: Alendronate Sodium [Fosamax] 70 mg PO QWEEK 05/02/18 [History] B12/Levomefolate Calcium/B-6 05/02/18 [History] Cholecalciferol (D-3) [Vitamin D] 2,000 unit PO DAILY 05/02/18 [History] Fish Oil 1,000 BID 05/02/18 [History] Fluticasone Propionate Nasal [Flonase] 2 spr NS DAILY 05/02/18 [History] Gabapentin [Neurontin] 600 mg PO TID 05/02/18 [History] Meclizine [Antivert] 12.5 mg PO TID 10 Days #30 tablet 05/02/18 [Rx] Metformin HCl [Glucophage] 1,000 mg PO BID 05/02/18 [History] Ondansetron HCl [Zofran] 4 mg PO Q8HR PRN #20 tab 05/02/18 [Rx] Pioglitazone HCl [Actos] 30 mg PO DAILY 05/02/18 [History] Ranitidine HCl [Acid Law Reporter] 150 mg PO BID 05/02/18 [History] diazePAM [Valium] 5 mg PO DAILY 05/02/18 [History] Allergies/Adverse Reactions: 3 Allergy/AdvReac Type Severity Reaction Status Date / Time No Known Allergies Allergy Verified 05/02/18 13:39 Date of admission: 05/02/18 17:15 Primary care physician: Bentley Kumar Consults: 05/02/18 17:53 PT [Consult to Physical Therapy] [CONS] Routine Comment: Evaluate, develop and implement POC Reason for Consult: Vertigo, difficulty ambulating Does patient have active BEDREST order?: No Is patient medically & hemodynamically stable?: Yes Patient assessed for mobility or mobilized this visit?: No Discharging clinician: Aidan Luke Anticipated date of discharge: 05/04/18 - Constitutional Vitals: Temp Pulse Resp BP Pulse Ox 97.4 F L 55 16 137/81 94 05/04/18 15:21 05/04/18 15:21 05/04/18 15:21 05/04/18 15:21 05/04/18 15:21 General appearance: Present: cooperative, A&O X 3, answers questions appropriately - Head Head exam: Present: atraumatic, normocephalic - Eye Eye exam: Present: conjunctival injection, EOMI, normal appearance, PERRL - ENT ENT exam: Present: mucous membranes dry - Respiratory Respiratory exam: Present: CTAB. Absent: prolonged expiratory phase, respiratory distress, rhonchi, stridor, wheezes - Cardiovascular Cardiovascular exam: Present: RRR, +S1, +S2. Absent: +S3, +S4 - GI/Abdominal GI/Abdominal exam: Present: normal bowel sounds, soft. Absent: guarding, hepatomegaly, mass - Neurological Exam Neurological exam: Present: alert, CN II-XII intact, oriented X3. Absent: no focal deficits, facial droop - Psychiatric Psychiatric exam: Present: normal affect, normal mood - Patient Status Disposition: Home, Self-Care Condition: Good Overall status at discharge: patient is progressing back to baseline - Discharge Instructions Instructions: Vertigo (DC) Follow Up With: Joi Raphael CNP [Advanced Practice Nurse] - 05/07/18 1:00 pm Meron Fishman MD [Partnered Physician] - 05/06/18 1:45 pm Juan David Guerrier DO [Partnered Physician] - (Office will call patient with date and time of appointment. Thank you) Forms: ED Satisfaction Letter Additional Instructions: Follow up with cardiology Follow up with neurology Follow up with your primary physician Take Meclizine PRN for dizziness - Diet and Activity Activity: increase activity as tolerated Diet: advance to your usual diet - VTE Documentation of Mechanical Device: Venous foot pump, device <Jacy Chicas - Last Filed: 05/04/18 23:30> Date of Encounter: 05/04/18 Hospital course: Mr. Pastor is a 78 year old male - Time Spent with Patient Total time spent providing and/or coordinating discharge services: Date of admission: 05/02/18 17:15 Primary care physician: Bentley Kumar Consults: 05/02/18 17:53 PT [Consult to Physical Therapy] [CONS] Routine Comment: Evaluate, develop and implement POC Reason for Consult: Vertigo, difficulty ambulating Does patient have active BEDREST order?: No Is patient medically & hemodynamically stable?: Yes Patient assessed for mobility or mobilized this visit?: No - Constitutional Vitals: Temp Pulse Resp BP Pulse Ox 97.4 F L 55 16 137/81 94 05/04/18 15:21 05/04/18 15:21 05/04/18 15:21 05/04/18 15:21 05/04/18 15:21 - Attending Attestation I examined this patient and my medical decision-making was reviewed with the Resident Physician. I agree with the documented findings, disposition and treatment plan as described except to the extent set forth below.
--- NOTE | 2018-05-04 17:44 | Electrocardiograph Report ---
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
== END 2018-05-04 18:30 | disposition home or self-care (01) ==
LOC: 3ANU 13:00 → EMEROO 13:00 → SUATTDRO 17:15 → 3ANU 17:50
PROVIDERS: ADMIT Internal Medicine; ATTEND Internal Medicine